=== PATIENT | male | born 1995 | race Caucasian/White ===

== ENCOUNTER 2022-02-19 11:46 | Emergency (ER) | payer BC, SELFPAY ==
--- NOTE | ~2022-02-19 | XR_ITS ---
EXAMINATION: XR hand LT min 3V DATE: 02/19/2022 13:18 INDICATION: Left hand laceration. TECHNIQUE: 3 views of left hand were obtained. COMPARISON: Left wrist radiographs 10/01/2020 FINDINGS: There is amputation of the second metacarpophalangeal joint. There is an old healed fractur e of head and neck of second metacarpal. There is amputation of diaphysis of fifth proximal phalanx. Joint spaces are normal. No radiopaque foreign body. IMPRESSION: 1. No acute fracture or radiopaque foreign body. Reviewed, dictated and finalized at location B.
[2022-02-19 12:01] VITALS: BP 161/67; PULSE 89; RESP 14; TEMP 36.4; O2SAT 99
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
[2022-02-19] MEDS: ACETAMINOPHEN 500 MG TABLET 1000 MG PO (13:39)
== END 2022-02-19 14:15 | disposition home or self-care (01) ==
PROVIDERS: Emergency Provider Preventive Medicine Aerospace Medicine
DX: T81.33XA Disruption of traumatic injury wound repair, initial encounter (principal); Y83.8 Other surgical procedures as the cause of abnormal reaction of the patient, or of later complication, without mention of misadventure at the time of the procedure; S50.312A Abrasion of left elbow, initial encounter; S80.212A Abrasion, left knee, initial encounter; V28.49XA Other motorcycle driver injured in noncollision transport accident in traffic accident, initial encounter; Z89.022 Acquired absence of left finger(s)
CPT/HCPCS: 12002; 73130; 99283; A9270